=== PATIENT | male | born 1965 | race Two or more races ===

== ENCOUNTER 2018-05-08 05:33 | Emergency (ER) | payer OTHER ==
[2018-05-08] MEDS ORDERED: HYDROmorphONE/DILAUDID 2 MG/ML INJ IVP ONE ×2 (05:45→06:36)
[2018-05-08] MEDS ORDERED: NS 1,000 ML IV ONE ×2 (05:45→06:50)
[2018-05-08] MEDS ORDERED: KETOROLAC 30 MG/1 ML SDV IVP ONE (05:45)
[2018-05-08] MEDS ORDERED: ONDANSETRON 4 MG/2 ML VIAL IVP ONE ×2 (05:45→06:31)
--- NOTE | 2018-05-08 05:45 | EDPHY ---
H & P Stated Complaint: LUQ PAIN FOR PAST 1 HR Source: Patient Exam Limitations: No limitations - Personal History Current Tetanus/Diphtheria Vaccine: Yes Current Tetanus Diphtheria and Acellular Pertussis (TDAP): Yes - Medical/Surgical History Hx Asthma: No Hx Chronic Respiratory Disease: No Hx Diabetes: No Hx Cardiac Disease: No Hx Renal Disease: No Hx Cirrhosis: No Hx Alcoholism: No Hx HIV/AIDS: No Hx Splenectomy or Spleen Trauma: No Other PMH: ortho right elbow - Social History Smoking Status: Current every day smoker Time Seen by Provider: 05/08/18 05:39 HPI/ROS: HPI The patient presents with left-sided lower quadrant abdominal pain which has been present for the last 1 hr which awoke him from sleep and is very severe. The pain is achy and radiates diffusely. He has had 2 episodes of vomiting. He has no prior history of similar symptoms. He has not had any diarrhea. He does not have any difficulty urinating. Yesterday he felt well generally.. REVIEW OF SYSTEMS 10 systems were reviewed and negative with the exception of the elements mentioned in the history of present illness. PMHx: Healthy Soc Hx: No alcohol use PHYSICAL General Appearance: Alert, uncomfortable appearing, writhing in pain Eyes: Pupils equal and round no pallor or injection ENT, Mouth: Mucous membranes moist Respiratory: There are no retractions, lungs are clear to auscultation Cardiovascular: Regular rate and rhythm Gastrointestinal: Abdomen is soft and tender in the left lower quadrant without rebound, no flank tenderness, no masses, bowel sounds normal Neurological: A&O, moves all extremities Skin: Warm and dry, no rashes Musculoskeletal: Neck is supple non tender Extremities: symmetrical, full range of motion Psychiatric: Patient is oriented X 3, there is no agitation (Riguzzi,Shaye) Constitutional: Initial Vital Signs Temperature (C) 36.5 C 05/08/18 05:34 Heart Rate 70 05/08/18 05:34 Respiratory Rate 28 H 05/08/18 05:34 Blood Pressure 176/106 H 05/08/18 05:34 O2 Sat (%) 99 05/08/18 05:34 O2 Delivery Mode Nasal Cannula O2 (L/minute) 2 Allergies/Adverse Reactions: Penicillins Allergy (Verified 05/08/18 05:37) Home Medications: Medication Instructions Recorded Ondansetron HCl [Zofran] 4 mg PO Q6H PRN #15 tablet 05/08/18 oxyCODONE HCL/ACETAMINOPHEN 1 each PO Q6H #20 tablet 05/08/18 [Percocet 5-325 mg Tablet] Medical Decision Making - Diagnostics Imaging: Discussed imaging studies w/ call box wirer Radiologist, I viewed and interpreted images myself - Diagnostics Imaging Results: CT abdomen pelvis with IV contrast demonstrates left-sided 3 mm ureteral stone at the UVJ, discussed with Dr. Bermeo of Radiology. (Shaye Mccall) ED Course/Re-evaluation: 8:45 a.m. the patient's urinalysis is unremarkable. His pain is controlled. He has been given prescriptions. He is eager to go home. We discussed indications for returning. (Garcia Messer) Differential Diagnosis: 53-year-old healthy man presents with 1 hr of left-sided lower abdominal pain associated with nausea and vomiting. On exam here, he is very uncomfortable appearing. He is tender in his left lower quadrant. Differential diagnosis includes diverticulitis, ureterolithiasis, less likely appendicitis or pyelonephritis. Plan for IV fluids, pain medication, basic labs. The patient felt better after receiving pain medication. He had a CT scan which did demonstrate left-sided ureterolithiasis which is the cause of his symptoms I believe. His stone is 3 mm, thus I will not give him Flomax. At change of shift at 7:00 a.m. The case is signed out to the oncoming provider Dr. Messer pending the patient's urinalysis. (Shaye Mccall) - Data Points Laboratory Results: Laboratory Results 05/08/18 05:45 05/08/18 05:45 05/08/18 05/08/18 05/08/18 08:10 05:45 05:45 WBC 11.69 10^3/uL H 10^3/uL (3.80-9.50) RBC 4.92 10^6/uL 10^6/uL (4.40-6.38) Hgb 14.7 g/dL g/dL (13.7-17.5) Hct 40.8 % % (40.0-51.0) MCV 82.9 fL fL (81.5-99.8) MCH 29.9 pg pg (27.9-34.1) MCHC 36.0 g/dL g/dL (32.4-36.7) RDW 12.3 % % (11.5-15.2) Plt Count 293 10^3/uL 10^3/uL (150-400) MPV 10.0 fL fL (8.7-11.7) Neut % (Auto) 65.5 % % (39.3-74.2) Lymph % (Auto) 26.9 % % (15.0-45.0) [place] % (Auto) 5.8 % % (4.5-13.0) Eos % (Auto) 0.5 % L % (0.6-7.6) Baso % (Auto) 1.0 % % (0.3-1.7) Nucleat RBC Rel Count 0.0 % % (0.0-0.2) Absolute Neuts (auto) 7.66 10^3/uL H 10^3/uL (1.70-6.50) Absolute Lymphs (auto) 3.14 10^3/uL H 10^3/uL (1.00-3.00) Absolute Monos (auto) 0.68 10^3/uL 10^3/uL (0.30-0.80) Absolute Eos (auto) 0.06 10^3/uL 10^3/uL (0.03-0.40) Absolute Basos (auto) 0.12 10^3/uL H 10^3/uL (0.02-0.10) Absolute Nucleated RBC 0.00 10^3/uL 10^3/uL (0-0.01) Immature Gran % 0.3 % % (0.0-1.1) Immature Gran # 0.03 10^3/uL 10^3/uL (0.00-0.10) Sodium 142 mEq/L mEq/L (135-145) Potassium 3.5 mEq/L mEq/L (3.3-5.0) Chloride 106 mEq/L mEq/L (97-110) Carbon Dioxide 20 mEq/l L mEq/l (22-31) Anion Gap 16 mEq/L H mEq/L (6-14) BUN 13 mg/dL mg/dL (7-23) Creatinine 0.8 mg/dL mg/dL (0.7-1.3) Estimated GFR > 60 Glucose 192 mg/dL H mg/dL (70-100) Calcium 9.5 mg/dL mg/dL (8.5-10.4) Total Bilirubin 0.5 mg/dL mg/dL (0.1-1.4) Conjugated Bilirubin 0.3 mg/dL mg/dL (0.0-0.5) Unconjugated Bilirubin 0.2 mg/dL mg/dL (0.0-1.1) AST 34 IU/L IU/L (17-59) ALT 47 IU/L IU/L (21-72) Alkaline Phosphatase 106 IU/L IU/L (38-126) Total Protein 7.8 g/dL g/dL (6.3-8.2) Albumin 4.4 g/dL g/dL (3.5-5.0) Lipase 173 IU/L IU/L (23-300) Urine Color PALE YELLOW Urine Appearance CLEAR Urine pH 7.0 (5.0-7.5) Ur Specific [place] 1.020 (1.002-1.030) Urine Protein NEGATIVE (NEGATIVE) Urine Ketones TRACE H (NEGATIVE) Urine Blood NEGATIVE (NEGATIVE) Urine Nitrate NEGATIVE (NEGATIVE) Urine Bilirubin NEGATIVE (NEGATIVE) Urine Urobilinogen NEGATIVE EU EU (0.2-1.0) Ur Leukocyte Esterase NEGATIVE (NEGATIVE) Urine RBC 1-3 /hpf /hpf (0-3) Urine WBC 1-3 /hpf /hpf (0-3) Ur Epithelial Cells NONE SEEN /lpf /lpf (NONE-1+) Urine Glucose 1+ H (NEGATIVE) Medications Given: Discontinued Medications Hydromorphone HCl (Dilaudid) 0.5 mg IVP EDNOW ONE Stop: 05/08/18 05:46 Last Admin: 05/08/18 05:54 Dose: 0.5 mg Hydromorphone HCl (Dilaudid) 0.5 mg IVP EDNOW ONE Stop: 05/08/18 06:37 Last Admin: 05/08/18 06:37 Dose: 0.5 mg Sodium Chloride (Ns) 1,000 mls @ 0 mls/hr IV EDNOW ONE; Wide Open PRN Reason: Protocol Stop: 05/08/18 05:46 Last Admin: 05/08/18 05:54 Dose: 1,000 mls Sodium Chloride (Ns) 1,000 mls @ 0 mls/hr IV EDNOW ONE; Wide Open PRN Reason: Protocol Stop: 05/08/18 06:51 Last Admin: 05/08/18 06:54 Dose: 1,000 mls Ketorolac Tromethamine (Toradol) 15 mg IVP EDNOW ONE Stop: 05/08/18 05:46 Last Admin: 05/08/18 05:55 Dose: 15 mg Ondansetron HCl (Zofran) 4 mg IVP EDNOW ONE Stop: 05/08/18 05:46 Last Admin: 05/08/18 05:55 Dose: 4 mg Ondansetron HCl (Zofran) 4 mg IVP EDNOW ONE Stop: 05/08/18 06:32 Last Admin: 05/08/18 06:31 Dose: 4 mg Departure - Departure Disposition: Home, Routine, Self-Care Clinical Impression: Renal colic on left side, Hyperglycemia Condition: Good Instructions: Renal Colic (ED), Nondiabetic Hyperglycemia (ED) Additional Instructions: 1. Take Ibuprofen or Motrin 600 mg by mouth three times a day. 2. Percocet as needed for severe pain 4. Zofran as needed for nausea 5. Strain urine as directed 6. Return to the Emergency Department for intractable pain, fever or vomiting. 7. Followup with the urologist you have been referred to for unimproved symptoms. Also, your blood sugar level was high here and will need to be repeated in the next few months. Referrals: Jenny Chávez MD [Medical Doctor] - As per Instructions Stand Alone Forms: Work Excuse Prescriptions: Ondansetron HCl [Zofran] 4 mg PO Q6H PRN #15 tablet PRN Reason: vomiting oxyCODONE HCL/ACETAMINOPHEN [Percocet 5-325 mg Tablet] 1 each PO Q6H #20 tablet
[2018-05-08 05:54] LABS: PLATELET COUNT 293 10^3/uL (150-400)
[2018-05-08] MEDS ORDERED: IOPAMIDOL (ISOVUE-300) 100 ML BTL ONE (05:54)
[2018-05-08] MEDS ORDERED: ONDANSETRON 4 MG/2 ML VIAL ONE (06:28)
[2018-05-08] MEDS ORDERED: HYDROmorphONE/DILAUDID 1 MG/ML INJ ONE (06:34)
[2018-05-08] MEDS ORDERED: LIDOCAINE 1% 180 MG in NS 100 ML IV ONE (06:50)
[2018-05-08] MEDS ORDERED: OXYCODONE/APAP 5/325MG PREPACK#4 BTL TAKEHOME ONE ×2 (06:53→08:57)
[2018-05-08] MEDS ORDERED: ONDANSETRON 4MG PREPACK#2 BTL TAKEHOME ONE ×2 (06:53→09:12)
[2018-05-08 08:50] VITALS: BP 154/100
== END 2018-05-08 09:22 | disposition home or self-care (01) ==
DX: N13.1 Hydronephrosis with ureteral stricture, not elsewhere classified (principal); R73.9 Hyperglycemia, unspecified; E86.9 Volume depletion, unspecified; F17.200 Nicotine dependence, unspecified, uncomplicated
CPT/HCPCS: 96374; J1170; J1885; J2405; Q9967